=== PATIENT | female | born 1945 | race Caucasian/White ===

== ENCOUNTER 2017-04-06 08:30 | Inpatient (IN) | payer MEDICARE, OTHER ==
[~2017-04-06] VITALS: Ht 165.1 cm; Wt 93.5 kg
[2017-05-22] MEDS ORDERED: LEVO.075 PO (09:06)
[2017-05-22] MEDS ORDERED: FLUO10TA PO (09:06)
[2017-05-22] MEDS ORDERED: SIMV40TA PO (09:33)
[2017-05-22] MEDS ORDERED: METF500T PO (09:33)
[2017-05-22] MEDS ORDERED: CYAN1000P IM (09:33)
[2017-05-22] MEDS ORDERED: MIRT1TAB PO (09:33)
[2017-05-22] MEDS ORDERED: MELO-1 PO (09:33)
[2017-06-08] MEDS ORDERED: INSULIN HUMAN REGULAR 1,000 UNITS/10 ML VIAL SQ PRN (05:45)
[2017-06-08] MEDS ORDERED: METOPROLOL TARTRATE 25 MG TAB PO PRN (05:45)
[2017-06-08] MEDS ORDERED: SODIUM CHLORID 0.9% 500 ML IV PRN (05:45)
[2017-06-08] MEDS ORDERED: POVIDONE IODINE 7.5% SCRUB 118 ML BOTTLE TOPICAL SCH (05:45)
[2017-06-08] MEDS ORDERED: DEXAMETHASONE SOD PHOS 20 MG/5 ML VIAL IV SCH (05:45)
[2017-06-08] MEDS ORDERED: VANCOMYCIN 1000 MG/NS 250 ML (for <70 kg) IV SCH ×2 (05:45)
[2017-06-08] MEDS ORDERED: CHLORHEXIDINE GLUCONATE 4% SOLN 120 ML BTL TOPICAL SCH (05:45)
[2017-06-08] MEDS ORDERED: CHLORHEXIDINE GLUCONATE 2 % 1 PACK (2 CLOTHS) TOPICAL PRN (05:45)
[2017-06-08] MEDS ORDERED: LACTATED RINGER'S 1000 ML IV PRN (05:45)
[2017-06-08] MEDS ORDERED: POVIDONE IODINE 5% (ANTISEPSIS KIT) 4 APPLICATIONS EACH NARE PRN (05:45)
[2017-06-08] MEDS ORDERED: ceFAZolin 2 GM PREMIX 50 ML IV SCH (05:45)
[2017-06-08] MEDS ORDERED: AMBI5TAB PO (05:46)
[2017-06-08] MEDS ORDERED: GENTAMICIN SULFATE 80 MG/2 ML VIAL ONE (06:12)
[2017-06-08] MEDS ORDERED: FAMOTIDINE 20 MG/2 ML VIAL ONE (06:22)
[2017-06-08] MEDS ORDERED: ENOX40P SQ (06:56)
[2017-06-08] MEDS ORDERED: HYDR-3288 PO (06:56)
[2017-06-08] MEDS ORDERED: ASPI81CH37 CHEW (06:57)
[2017-06-08] MEDS ORDERED: TRANEXAMIC ACID IV SCH (07:00)
[2017-06-08] MEDS ORDERED: ONDANSETRON HCL 4 MG/2 ML VIAL IVP PRN (07:00)
[2017-06-08] MEDS ORDERED: TRANEXAMIC PERI-ARTICULAR 3,000 MG/NS 100 ML P-ARTICULR SCH ×2 (07:00)
[2017-06-08] MEDS ORDERED: diphenhydrAMINE HCL 50 MG/ML VIAL IV PRN (07:00)
[2017-06-08] MEDS ORDERED: SODIUM CHLORIDE 0.9% IV SCH (07:00)
[2017-06-08] MEDS ORDERED: ZOLPIDEM TARTRATE 5 MG TAB PO PRN (07:00)
[2017-06-08] MEDS ORDERED: ROPIVACAINE PERI-ARTICULAR INJECTION. P-ARTICULR SCH ×5 (07:00)
[2017-06-08] MEDS ORDERED: SODIUM CHLORIDE 0.9% FLUSH 5 ML FLUSH IVF PRN (07:00)
[2017-06-08] MEDS ORDERED: MORPHINE SULFATE 4 MG/ML INJ IV PUSH PRN (07:00)
[2017-06-08] MEDS ORDERED: ACETAMINOPHEN/HYDROcodone 325 MG/7.5 MG TAB PO PRN (07:00)
[2017-06-08] MEDS ORDERED: Post-op Orders (for Pharmacy) MISC XX ONE (07:00)
[2017-06-08] MEDS: FLUoxetine HCL 10 MG CAP PO SCH (09:00)
[2017-06-08] MEDS ORDERED: BISACODYL 10 MG SUPP RECTAL PRN (09:00)
[2017-06-08] MEDS: SODIUM CHLORIDE 0.9% FLUSH 5 ML FLUSH IVF SCH ×2 (09:00→21:36)
[2017-06-08] MEDS ORDERED: DO NOT ADM ANY ANTICOAGULANT DRUGS PRN (09:15)
[2017-06-08] MEDS: SODIUM CHLOR 0.9% 1000 ML INJ 1,000 ML IV SCH ×2 (09:15→16:53)
[2017-06-08] MEDS ORDERED: *morphine SULFATE 8 MG/ML PERIprocedure ONLY ONE ×3 (09:24→10:55)
--- NOTE | 2017-06-08 09:33 | MP ---
cc: RAMYA URIAS M.D. DATE OF SURGERY: 06/08/2017 PREOPERATIVE DIAGNOSIS Right knee osteoarthritis. POSTOPERATIVE DIAGNOSIS Right knee osteoarthritis. PROCEDURE Right total knee arthroplasty. SURGEON Dr. Ramya Urias. TITLE INSURANCE SALES REPRESENTATIVE Ramya Arguello PA-C. ANESTHESIA General with an adductor canal block. ESTIMATED BLOOD LOSS 100 cc. TOURNIQUET TIME 51 minutes at 300 mmHg COMPLICATIONS None. IMPLANTS USED DePuy Attune size 6 posterior stabilized femoral component, size 5 rotating platform tibial baseplate, size 5 mm polyethylene tibial insert, size 35 patella. JUSTIFICATION The patient is a 71-year-old female with a history of severe end-stage osteoarthritis involving the right knee. She had severe disabling pain with standing, walking ambulation, weightbearing activities and severe pain at rest. It does interfere with her activities of daily living. She has failed greater than three months of nonoperative conservative to include medication therapy, injections, ambulatory assisted aids, home exercise program, activity modification and weight loss attempts. X-rays of the right knee revealed severe end-stage osteoarthritis with [id number] joint space narrowing, subchondral sclerosis, subchondral cysts, osteophyte formation with varus deformity. The patient was counseled as to the risks, benefits and alternatives to a total knee arthroplasty. The risks were discussed which include but are not limited to anesthesia, bleeding, infection, damage to nerves and blood vessels, pain, stiffness, failure of components, blood clots, pulmonary embolism and even . The patient's pain is severe. She favored the benefits over the risks. She did wish to proceed with surgery. PROCEDURE IN DETAIL Written consent was obtained. The patient was identified by name, taken to the operating room and placed supine on the operating table. An adductor canal nerve block was followed by general anesthesia. The patient was administered two grams of IV Ancef and one gram of IV vancomycin. A well-padded tourniquet was placed on the right thigh. The right lower extremity was prepped and draped using isopropyl alcohol, Hibiclens solution and ChloraPrep solution. After the timeout was performed an Esmarch bandage was used to exsanguinate the right lower extremity and tourniquet inflated to 300 mmHg. A longitudinal incision was made over the anterior aspect of the right knee. A medial parapatellar arthrotomy was performed. The patella was everted. A patellar resection guide was used to resect 8 mm of patella. The size 35 mm guide was placed. Three drill holes were placed and the 35 mm trial fit well. Attention was turned to the femur where an intramedullary guide christina was placed and the distal femoral guide was set to remove 10 mm off the distal femur, 5 degrees off the anatomic valgus axis alignment. An oscillating saw was used to perform the distal femoral cut. Attention was turned to the tibia where an extramedullary tibial guide was set to remove 5 mm off the lowest portion of the medial tibial plateau. A tibia guide was pinned in place and tibia cut was performed. A 5 mm spacer block showed full extension. Attention was turned back to the femur where the AP sizing block measured size 6. The anterior reference 3 degree external rotation guide was used to pin a size [address] The anterior, posterior and chamfer cuts were performed. A size 6 PCL box guide was pinned in place and the PCL was box cut with an oscillating saw. The medial and lateral meniscus remnants were removed as well as bone and soft tissue debris from the posterior portion of the knee. A size 5 tibia baseplate was pinned in place and the tibia was drilled and punched. The trial components were evaluated and final components cemented in place. With the current components the leg could achieve full extension to 0 degrees and flexion to 140. No evidence of tibial liftoff. Varus and valgus balance were appropriate. There was some lateral tracking of the patella and a lateral release was performed which allowed for central tracking of the patella. The tourniquet was deflated. There was some bleeding from the lateral aspect of the knee and Bovie cautery was used for hemostasis in this region. Surgiflo was also placed within the knee joint to assist with complete hemostasis. The knee was thoroughly irrigated with sterile saline pulse lavage antibiotic-impregnated solution. The arthrotomy incision was closed with #1 Vicryl suture, subcutaneous layer with 2-0 Vicryl suture and skin was closed with Dermabond. Sterile dressings were applied. The patient tolerated the procedure well with no intraoperative complications noted. Ramya Arguello, physician office clerk assistant certified, was present during the entire procedure to include patient positioning and the procedure itself. The medical necessity of the physician office clerk assistant was indicated in this case due to the complexity of the procedure. He assisted with appropriate manipulation of the leg and also retraction of muscle, tendon, bone and neurovascular structures. He assisted with preparation of bone and also implantation of the prosthetic replacement. MD VIKAS Cates/KATE /8:52 AM /9:11 AM
--- NOTE | 2017-06-08 10:51 | RADRPT ---
EXAM DATE/TIME: 06/08/2017 09:38 [facility] COMPARISON: No previous studies available for comparison. INDICATIONS : Post op right knee MEDICAL HISTORY : None. SURGICAL HISTORY : right knee replaced ENCOUNTER: Initial ACUITY: 1 day PAIN SCORE: 6/10 LOCATION: Right knee FINDINGS: Examination of the knee demonstrates arthroplasty in satisfactory position. The alignment is anatomic . CONCLUSION: Post surgical changes as above. Danial Becerra MD on June 08, 2017 at 10:49 Board Certified Radiologist. This report was verified electronically.
[2017-06-08] MEDS ORDERED: MORPHINE SULFATE 4 MG/ML INJ IV ONE (12:00)
[2017-06-08] MEDS ORDERED: ROCURONIUM INJ 50 MG/5 ML SYRINGE IV PUSH ONE (12:00)
[2017-06-08] MEDS ORDERED: LIDOCAINE HCL 1% PF 5 ML AMPULE OTHER ONE (12:00)
[2017-06-08] MEDS ORDERED: MIDAZOLAM HCL 2 MG/2 ML VIAL IV ONE (12:00)
[2017-06-08] MEDS ORDERED: SODIUM CHLORIDE 0.9% 20 ML VIAL IV ONE (12:00)
[2017-06-08] MEDS ORDERED: ONDANSETRON HCL 4 MG/2 ML VIAL IV PUSH ONE (12:00)
[2017-06-08] MEDS ORDERED: METOPROLOL TARTRATE 5 MG/5 ML VIAL IV PUSH ONE (12:00)
[2017-06-08] MEDS ORDERED: PROPOFOL 200 MG/20 ML AMP IV ONE (12:00)
[2017-06-08] MEDS ORDERED: GLYCOPYRROLATE 1 MG/5 ML SYRINGE IV PUSH ONE (12:00)
--- NOTE | 2017-06-08 13:07 | HHI.DCPOC ---
Discharge Care Plan Diagnosis: (1) Primary localized osteoarthrosis, lower leg Your Health Problems Are: Difficulty with ADL Goals to Promote Your Health * To prevent worsening of your condition and complications * To maintain your health at the optimal level Directions to Meet Your Goals Take your medications as prescribed Follow your dietary instruction Follow activity as directed Keep your appointments as scheduled Take your immunizations and boosters as scheduled If your symptoms worsen call your PCP, if no PCP go to Urgent Care Center or Emergency Room Smoking is Dangerous to Your Health. Avoid second hand smoke Call the 24-hour hour crisis hotline for domestic abuse at Lior Arguello Jun 08, 2017 13:07
--- NOTE | 2017-06-08 13:08 | HHI.FF ---
Face to Face Verification Diagnosis: (1) Primary localized osteoarthrosis, lower leg Physical Therapy Gait training, Safety evaluation, Transfer training, bed to chair Knee: Total knee, Protocol: Right, Full weight bearing Right LE Weight Bearing: WB as tolerated Nursing RN: 3 days/week x 2 weeks Nursing: Leonel teaching, Dressing changes Dressing Changes: Daily dressing change I have seen patient Serena Walter on 06/08/17. My clinical findings support the need for the requested home health care services because: Limited ability to care for self High risk of falls I certify that my clinical findings support that this patient is homebound because: Post-op weakness Unsteady gait/balance Lior Arguello Jun 08, 2017 13:08
[2017-06-08] MEDS ORDERED: WALKER WHEELS/F1 MIS (13:10)
[2017-06-08] MEDS ORDERED: CPMMACHINE (13:10)
[2017-06-08] MEDS ORDERED: COMMODE 3-IN-11 MIS (13:10)
[2017-06-08] MEDS: ACETAMINOPHEN/HYDROcodone 325 MG/7.5 MG TAB PO PRN ×3 (13:45→21:38)
[2017-06-08 15:50] VITALS: BP 134/55; PULSE 82; RESP 18; TEMP 97.9; O2SAT 99
[2017-06-08 20:00] VITALS: BP 118/56; PULSE 86; RESP 20; TEMP 97.3; O2SAT 96
[2017-06-08] MEDS: PRAVASTATIN SOD 40 MG TAB PO SCH (21:36)
[2017-06-08] MEDS: metFORMIN HCL 500 MG TAB PO SCH (21:36)
[2017-06-08] MEDS: FAMOTIDINE 20 MG TAB PO SCH (21:36)
--- NOTE | 2017-06-08 23:43 | MB ---
cc: WYATT CALDERON JEFFREY DATE OF CONSULTATION: 06/08/[address] Lior Landaverde REASON FOR CONSULTATION: Assistance with postop medical management. HISTORY OF PRESENT ILLNESS This is a pleasant 71-year-old female with prior history of diabetes, hypertension, hyperlipidemia and osteoarthritis. The patient has been suffering from right knee pain for quite some time. She was diagnosed with severe osteoarthritis, and was treated conservatively with analgesics and NSAIDs. She was treated with conservative medical management after which Dr. Landaverde recommended knee replacement arthroplsty. The patient received preop medical care by her primary care physician. She was brought to the hospital electively and today she underwent right total knee replacement arthroplasty under general anesthesia with adductor canal block. She tolerated the procedure well. It was estimated 100 cc blood loss to the operation. Postoperatively she is currently resting in bed. Pain is in control. She denies nausea or vomiting. Denies chest pain, shortness of breath, cough or sputum production. PAST MEDICAL HISTORY This patient is significant for: 1. Diabetes type 2. 2. Hypertension. 3. Hyperlipidemia. 4. History of hypothyroidism. 5. History of breast cancer. 6. History of depression. 7. Obesity. 8. Osteoarthritis. PAST SURGICAL HISTORY Significant for: 1. Bilateral radical mastectomy in 2002. 2. Reconstructive breast surgery in 2004. 3. Few spurs bilateral feet. 4. Hysterectomy. SOCIAL HISTORY She used to smoke in the distant past, stopped smoking about 35 years ago. She denies drinking or drug abuse. She is , lives with her . Her is 90 years old, suffers from dementia and she is the caregiver. FAMILY HISTORY: Both her parents are . Mom at the age of 89 from complications of pneumonia. Dad also at the age of 89. He had brain aneurysm. HOME MEDICATIONS: 1. Oxygen 10 milligrams daily. 2. Levothyroxine 75 micrograms daily. 3. Meloxicam 15 mg daily. 4. Simvastatin 40 mg daily. 5. Vitamin B12 injection every 30 days. 6. Metformin 500 milligrams p.o. b.i.d. 7. Ambien 5 milligrams at bed time for insomnia. REVIEW OF SYSTEMS The patient denies headache, dizziness, loss of consciousness, no dysphagia, odynophagia. Denies nausea, vomiting. Denies chest pain, shortness breath, orthopnea, paroxysmal nocturnal dyspnea. Denies cough with sputum production. She usually moves her bowels every 2-3 days. Denies melena, bright red blood per rectum. No history of recent change in bowel pattern. She had screening colonoscopy, the last one was done about a year ago. She denies dysuria or hematuria. She is hoping to go home with home health care when stable. The remainder of the review of systems is negative for 12 systems except for what is mentioned above. PHYSICAL EXAMINATION: An obese female lying in bed, not in any acute distress. She is awake and alert, she is oriented x3. VITAL SIGNS: Blood pressure 123/80, pulse 84, respiratory rate 12, temperature 97.8, oxygen 97% on two liters nasal cannula. HEENT: Normocephalic, atraumatic, extraocular movements intact, round and reactive. No icterus, no significant pallor. No throat congestion, no oral ulcers or thrush. NECK: Supple. No JVD. No bruits. CARDIOVASCULAR: S1-S2 audible, regular rhythm, no murmurs. LUNGS: Clear to auscultation. No crackles or rhonchi appreciated. ABDOMEN: Soft, protuberant, bulky, nontender. Positive bowel sounds. No hepatosplenomegaly. EXTREMITIES: Right knee has dressing intact. NAYA drain is in place. Both feet are warm to touch. Homans' sign is negative. NEUROLOGIC: She is awake, alert. Oriented x3. No facial asymmetry. She is moving bilateral left lower extremity freely. LABORATORY DATA On 05/22/2017: White count 6.0, hemoglobin 12.1, hematocrit 36.1, platelet count 268, with an MCV of 91.3. Sodium 139, potassium 3.6, chloride 102, carbon dioxide 30.2, BUN 11, creatinine 0.60, glucose 121, calcium 8.4, LFTs essentially unremarkable. Total protein slightly low at 6.3, albumin 3.4. IMAGING STUDIES: Chest x-ray 05/22/2017, mild prominence of pulmonary artery suggesting possible pulmonary artery hypertension, otherwise lungs are clear. No infiltrate or effusion. EK05/22/2017, sinus rhythm with distant artifact, possible left atrial enlargement. ASSESSMENT: 1. Osteoarthritis right knee, status post right total knee replacement, postop day #0. 2. Diabetes type 2. 3. Hypertension. 4. Hyperlipidemia. 5. Obesity. 6. Depression. 7. Prior history of breast cancer. PLAN Postop care as per orthopedic. The patient is receiving antibiotics prophylaxis in the form of IV Ancef. The analgesics for pain control, SCDs, wound care. DVT prophylaxis, subcu Lovenox has been ordered. CPM twice daily. Will put her on diabetic diet. Sliding scale coverage with metformin. Continue statin, continue antidepressant, put her on Pepcid for GI protection. Monitor CBC, electrolytes, monitor blood pressure. Consult Outdoor Studies Director for discharge planning. Thank you, Dr. Landaverde, for this consultation. I will follow the patient with you. MD KEI Zimmerman/CUCO /6:21 PM /11:15 PM
[2017-06-09] VITALS (7 sets, daily range): BP systolic 96–113; BP diastolic 48–54; PULSE 75–83; RESP 13–20; TEMP 97.3–98.4; O2SAT 93–97
[2017-06-09] MEDS: SODIUM CHLOR 0.9% 1000 ML INJ 1,000 ML IV SCH ×3 (02:59→23:56)
[2017-06-09] MEDS: LEVOTHYROXINE SODIUM 75 MCG TAB PO SCH (06:37)
[2017-06-09] MEDS: ACETAMINOPHEN/HYDROcodone 325 MG/7.5 MG TAB PO PRN ×5 (06:38→22:28)
--- NOTE | 2017-06-09 08:14 | PD.ORT.PN ---
Subjective Post Op Day #: 1 Subjective Remarks pain controlled. Objective Vitals Vital Signs Date Time Temp Pulse Resp B/P (MAP) Pulse Ox O2 Delivery O2 Flow Rate FiO2 06/09/17 07:32 97.3 75 18 106/51 (69) 93 06/09/17 04:00 97.3 76 20 113/52 (72) 94 06/09/17 03:55 93 06/09/17 00:00 97.6 83 20 96/48 (64) 94 06/08/17 20:00 97.3 86 20 118/56 (76) 96 06/08/17 15:50 97.9 82 18 134/55 (81) 99 06/08/17 15:30 97.8 84 12 123/58 (79) 97 Nasal Cannula 2 06/08/17 15:00 93 12 108/58 (75) 97 Nasal Cannula 2 06/08/17 14:00 90 12 139/63 (88) 97 Nasal Cannula 2 06/08/17 13:00 91 12 146/68 (94) 98 Nasal Cannula 2 06/08/17 12:00 98.1 97 12 151/67 (95) 98 Nasal Cannula 2 06/08/17 11:00 92 12 153/72 (99) 96 Nasal Cannula 2 06/08/17 10:15 92 12 153/81 (105) 97 Nasal Cannula 2 06/08/17 10:00 101 12 155/85 (108) 97 Nasal Cannula 2 06/08/17 09:45 101 12 146/83 (104) 97 Nasal Cannula 2 06/08/17 09:30 109 12 188/88 (121) 97 Nasal Cannula 2 06/08/17 09:15 97.8 111 12 190/86 (120) 97 Nasal Cannula 2 I/O 06/08/17 06/08/17 06/08/17 06/09/17 06/09/17 06/09/17 07:00 15:00 23:00 07:00 15:00 23:00 Intake Total 50 ml 1100 ml 561 ml 1345 ml Output Total 300 ml 350 ml 625 ml Balance 50 ml 800 ml 211 ml 720 ml Intake IV Total 50 ml 1100 ml 561 ml 1345 ml Output Urine Total 200 ml 350 ml 625 ml Estimated Blood Loss 100 ml Objective Remarks in bed, nad dressing c/d/i neg homans nvi Assessment & Plan Ortho Post Op Day #: 1 Problem List: Assessment and Plan s/p R TKA wbat daily dressing changes aleksandar d/c planning home with [facility] and pt PT rx in chart f/up dr. cota 2 weeks Lior Arguello Jun 09, 2017 08:14
[2017-06-09] MEDS: ENOXAPARIN SODIUM 40 MG/0.4 ML SYRINGE SQ SCH (08:28)
[2017-06-09] MEDS: FAMOTIDINE 20 MG TAB PO SCH ×2 (08:28→22:27)
[2017-06-09] MEDS: FLUoxetine HCL 10 MG CAP PO SCH (08:28)
[2017-06-09 08:29] LABS: HEMATOCRIT 27.1 % (35.0-46.0); MEAN CELL VOLUME 92.8 FL (80.0-100.0); MEAN CORPUSCULAR HEMOGLOBIN 31.2 PG (27.0-34.0); MEAN CORPUSCULAR HGB CONC 33.7 % (32.0-36.0); PLATELET COUNT 210 TH/MM3 (150-450); RED BLOOD COUNT 2.93 MIL/MM3 (4.00-5.30); RED CELL DISTRIBUTION WIDTH 14.4 % (11.6-17.2); REVIEW FLAG FINAL; WHITE BLOOD COUNT 9.5 TH/MM3 (4.0-11.0)
[2017-06-09] MEDS: SODIUM CHLORIDE 0.9% FLUSH 5 ML FLUSH IVF SCH ×2 (08:29→22:28)
[2017-06-09 08:33] LABS: BICARBONATE 27.1 MEQ/L (21.0-32.0); POTASSIUM 3.9 MEQ/L (3.5-5.1)
--- NOTE | 2017-06-09 09:59 | HHI.PR ---
Subjective Subjective Remarks No acute events overnight Right knee pain stable No fever No chest pain No shortness of breath Tolerating diet well Review of Systems Constitutional Constitutional Remarks 12 point review of systems completed, negative except as noted above Vitals/Results Intake & Output 06/09/17 06/09/17 06/10/17 15:00 23:00 07:00 Intake Total 219 ml Balance 219 ml Intake IV Total 219 ml Vital Signs Vital Signs Date Time Temp Pulse Resp B/P (MAP) Pulse Ox O2 Delivery O2 Flow Rate FiO2 06/09/17 07:32 97.3 75 18 106/51 (69) 93 06/09/17 04:00 97.3 76 20 113/52 (72) 94 06/09/17 03:55 93 06/09/17 00:00 97.6 83 20 96/48 (64) 94 06/08/17 20:00 97.3 86 20 118/56 (76) 96 06/08/17 15:50 97.9 82 18 134/55 (81) 99 06/08/17 15:30 97.8 84 12 123/58 (79) 97 Nasal Cannula 2 06/08/17 15:00 93 12 108/58 (75) 97 Nasal Cannula 2 06/08/17 14:00 90 12 139/63 (88) 97 Nasal Cannula 2 06/08/17 13:00 91 12 146/68 (94) 98 Nasal Cannula 2 06/08/17 12:00 98.1 97 12 151/67 (95) 98 Nasal Cannula 2 06/08/17 11:00 92 12 153/72 (99) 96 Nasal Cannula 2 06/08/17 10:15 92 12 153/81 (105) 97 Nasal Cannula 2 06/08/17 10:00 101 12 155/85 (108) 97 Nasal Cannula 2 CBC/BMP: 06/09/17 0716 06/09/17 0716 Lab Results Laboratory Tests Test 06/09/17 07:16 White Blood Count 9.5 TH/MM3 Red Blood Count 2.93 MIL/MM3 Hemoglobin 9.1 GM/DL Hematocrit 27.1 % Mean Corpuscular Volume 92.8 FL Mean Corpuscular Hemoglobin 31.2 PG Mean Corpuscular Hemoglobin Concent 33.7 % Red Cell Distribution Width 14.4 % Platelet Count 210 TH/MM3 Mean Platelet Volume 9.0 FL Blood Urea Nitrogen 12 MG/DL Creatinine 0.67 MG/DL Random Glucose 119 MG/DL Calcium Level 7.8 MG/DL Sodium Level 138 MEQ/L Potassium Level 3.9 MEQ/L Chloride Level 104 MEQ/L Carbon Dioxide Level 27.1 MEQ/L Anion Gap 7 MEQ/L Estimat Glomerular Filtration Rate 87 ML/MIN Physical Exam General General Appearance: Well Developed, Well Nourished, No Acute Distress, Comfortable, Obese Eyes Eye Exam: Pupils Equal, Pupils Reactive Ears & Nose Ears & Nose Exam: Nasal Mucosa [place] Throat Throat Exam: Oral Mucosa [place] & Moist Neck Neck Exam: Neck Supple, Trachea Midline Pulmonary Resp Exam: Clear Bilaterally, No Distress Cardiology CV Exam: Regular Gastrointestinal/Abdomen GI Exam: Soft, Non-Tender, Bowel Sounds Present, Non-Distended Musculoskeletal MS Exam: Joints Intact MS Remarks Right knee dressing dry and intact Integumentary Skin Exam: Warm, Dry Extremeties Extremities Exam: No Edema, Pedal Pulses Palpable Neurologic Neuro Exam: Alert, Awake, Oriented, Speech Clear, Auto Mechanic Supervisor Equal Psychiatric Psych Exam: Appropriate Responses VTE Prophylaxis VTE Prophylaxis Device: TEDs VTE Prophylaxis Meds: Lovenox Assessment/Plan Assessment/Plan ASSESSMENT: 1. Osteoarthritis right knee, status post right total knee replacement, postop day #1 2. Diabetes type 2. 3. Hypertension. 4. Hyperlipidemia. 5. Obesity. 6. Depression. 7. Prior history of breast cancer. PLAN Continue with Postop care as per orthopedic Continue with antibiotics prophylaxis in the form of IV Ancef Pain management Wound care Physical therapy CPM twice daily Continue with Accu-Cheks before meals and at bedtime and insulin therapy as needed Continue with home medications History hypertension, blood pressure 100s, stable Denies any dizziness Patient not taking any medications at home Labs reviewed, H&H stable, 9.10/03.1 Continue Lovenox for DVT prophylaxis Pepcid for GI protection Repeat CBC in the morning Case management for home health care, patient wants to go home Discussed with attending Discussed with patient This patient was seen by myself and Dr. Titus, this note is written on his behalf [place] Grimes Jun 09, 2017 09:59
[2017-06-09] MEDS ORDERED: DEXTROSE 50% IN WATER 50 ML VIAL(D50) IV PUSH PRN (10:00)
[2017-06-09] MEDS ORDERED: GLUCAGON 1 MG/ML VIAL OTHER PRN (10:00)
[2017-06-09] MEDS: INSULIN ASPART SUPPLEMENTAL SCALE SQ SCH ×3 (12:00→22:28)
[2017-06-09] MEDS: metFORMIN HCL 500 MG TAB PO SCH (22:27)
[2017-06-09] MEDS: PRAVASTATIN SOD 40 MG TAB PO SCH (22:27)
[2017-06-09] MEDS: DOCUSATE SODIUM 100 MG CAP PO SCH (22:27)
[2017-06-09] MEDS: MULTIVITAMINS/MINERALS THERAPEUTIC TAB PO SCH (22:27)
[2017-06-10 00:10] VITALS: BP 113/49; PULSE 75; RESP 15; TEMP 96.3; O2SAT 93
[2017-06-10] MEDS: ACETAMINOPHEN/HYDROcodone 325 MG/7.5 MG TAB PO PRN ×6 (02:41→23:58)
[2017-06-10] MEDS: LEVOTHYROXINE SODIUM 75 MCG TAB PO SCH (06:51)
[2017-06-10 08:00] VITALS: BP 104/50; PULSE 78; RESP 17; TEMP 97.1; O2SAT 92
[2017-06-10] MEDS: INSULIN ASPART SUPPLEMENTAL SCALE SQ SCH ×4 (08:00→21:00)
[2017-06-10 08:12] LABS: HEMATOCRIT 24.7 % (35.0-46.0); MEAN CELL VOLUME 91.5 FL (80.0-100.0); MEAN CORPUSCULAR HEMOGLOBIN 31.1 PG (27.0-34.0); PLATELET COUNT 187 TH/MM3 (150-450); RED CELL DISTRIBUTION WIDTH 14.2 % (11.6-17.2); REVIEW FLAG FINAL; WHITE BLOOD COUNT 7.2 TH/MM3 (4.0-11.0)
--- NOTE | 2017-06-10 08:18 | PD.ORT.PN ---
Subjective Post Op Day #: 2 Subjective Remarks pain controlled. did not do much with PT yesterday. Objective Vitals Vital Signs Date Time Temp Pulse Resp B/P (MAP) Pulse Ox O2 Delivery O2 Flow Rate FiO2 06/10/17 00:10 96.3 75 15 113/49 (70) 93 06/09/17 21:05 97 06/09/17 20:24 98.4 79 13 108/50 (69) 06/09/17 11:38 97.8 77 18 103/54 (70) 94 I/O 06/09/17 06/09/17 06/09/17 06/10/17 06/10/17 06/10/17 07:00 15:00 23:00 07:00 15:00 23:00 Intake Total 1345 ml 819 ml 720 ml 240 ml Output Total 625 ml 150 ml Balance 720 ml 669 ml 720 ml 240 ml Intake Oral 600 ml 720 ml 240 ml IV Total 1345 ml 219 ml Output Urine Total 625 ml 150 ml # Voids 3 2 # Bowel Movements 0 0 0 Result Diagram: 06/10/17 0634 06/09/17 0716 Objective Remarks in bed, nad incision no erythema, no drainage neg homans nvi Assessment & Plan Ortho Post Op Day #: 2 Problem List: Assessment and Plan s/p R TKA wbat daily dressing changes lovenox d/c planning home with [facility] and pt - likely Thurs. PT OOB and IS rx in chart f/up dr. cota 2 weeks Lior Arguello Jun 10, 2017 08:18
[2017-06-10] MEDS: MULTIVITAMINS/MINERALS THERAPEUTIC TAB PO SCH ×2 (08:51→20:17)
[2017-06-10] MEDS: SODIUM CHLORIDE 0.9% FLUSH 5 ML FLUSH IVF SCH ×2 (08:51→20:17)
[2017-06-10] MEDS: FLUoxetine HCL 10 MG CAP PO SCH (08:51)
[2017-06-10] MEDS: DOCUSATE SODIUM 100 MG CAP PO SCH ×2 (08:51→20:17)
[2017-06-10] MEDS: FAMOTIDINE 20 MG TAB PO SCH ×2 (08:51→20:18)
[2017-06-10] MEDS: ENOXAPARIN SODIUM 40 MG/0.4 ML SYRINGE SQ SCH (08:52)
[2017-06-10] MEDS: SODIUM CHLOR 0.9% 1000 ML INJ 1,000 ML IV SCH ×2 (08:53→18:53)
[2017-06-10 08:55] LABS: POTASSIUM 3.5 MEQ/L (3.5-5.1)
[2017-06-10] MEDS ORDERED: MAGNESIUM HYDROXIDE SUSP 30 ML CUP PO PRN (09:45)
--- NOTE | 2017-06-10 09:47 | HHI.PR ---
Subjective Subjective Remarks no fever was hoping to go home today but not moving as much no bm yet no fever Right knee pain stable No chest pain No shortness of breath appetite fair Review of Systems Constitutional Constitutional Remarks 12 point review of systems completed, negative except as noted above Vitals/Results Vital Signs Vital Signs Date Time Temp Pulse Resp B/P (MAP) Pulse Ox O2 Delivery O2 Flow Rate FiO2 06/10/17 08:00 97.1 78 17 104/50 (68) 92 06/10/17 00:10 96.3 75 15 113/49 (70) 93 06/09/17 21:05 97 06/09/17 20:24 98.4 79 13 108/50 (69) 06/09/17 11:38 97.8 77 18 103/54 (70) 94 CBC/BMP: 06/10/17 0634 06/10/17 0634 Lab Results Laboratory Tests Test 06/10/17 06:34 White Blood Count 7.2 TH/MM3 Red Blood Count 2.70 MIL/MM3 Hemoglobin 8.4 GM/DL Hematocrit 24.7 % Mean Corpuscular Volume 91.5 FL Mean Corpuscular Hemoglobin 31.1 PG Mean Corpuscular Hemoglobin Concent 34.0 % Red Cell Distribution Width 14.2 % Platelet Count 187 TH/MM3 Mean Platelet Volume 9.3 FL Blood Urea Nitrogen 11 MG/DL Creatinine 0.58 MG/DL Random Glucose 81 MG/DL Calcium Level 8.2 MG/DL Sodium Level 139 MEQ/L Potassium Level 3.5 MEQ/L Chloride Level 104 MEQ/L Carbon Dioxide Level 30.0 MEQ/L Anion Gap 5 MEQ/L Estimat Glomerular Filtration Rate 102 ML/MIN Physical Exam General General Appearance: Well Developed, Well Nourished, No Acute Distress, Comfortable, Obese Eyes Eye Exam: Pupils Equal, Pupils Reactive Ears & Nose Ears & Nose Exam: Nasal Mucosa [place] Throat Throat Exam: Oral Mucosa [place] & Moist Neck Neck Exam: Neck Supple, Trachea Midline Pulmonary Resp Exam: Clear Bilaterally, No Distress Cardiology CV Exam: Regular Gastrointestinal/Abdomen GI Exam: Soft, Non-Tender, Bowel Sounds Present, Non-Distended Musculoskeletal MS Exam: Joints Intact MS Remarks Right knee dressing dry and intact Integumentary Skin Exam: Warm, Dry Extremeties Extremities Exam: No Edema, Pedal Pulses Palpable Neurologic Neuro Exam: Alert, Awake, Oriented, Speech Clear, Job Printer Apprentice Equal Psychiatric Psych Exam: Appropriate Responses VTE Prophylaxis VTE Prophylaxis Device: TEDs VTE Prophylaxis Meds: Lovenox Assessment/Plan Assessment/Plan ASSESSMENT: 1. Osteoarthritis right knee, status post right total knee replacement, postop day #1 2. Diabetes type 2. 3. Hypertension. 4. Hyperlipidemia. 5. Obesity. 6. Depression. 7. Prior history of breast cancer. PLAN Continue with Postop care as per orthopedic Continue with antibiotics prophylaxis in the form of IV Ancef Pain management Wound care Physical therapy CPM twice daily Continue with Accu-Cheks before meals and at bedtime and insulin therapy as needed Continue with home medications Add MOM to bowel regimen History hypertension, blood pressure 100s, stable Denies any dizziness Patient not taking any medications at home HH stable, hgb 8.4 Continue Lovenox for DVT prophylaxis Pepcid for GI protection Repeat CBC in the morning Case management for home health care, patient wants to go home likely to be dc tomorrow Discussed with attending Discussed with patient This patient was seen by myself and Dr. Titus, this note is written on his behalf [place] Grimes Jun 10, 2017 09:47
[2017-06-10 12:00] VITALS: BP 104/48; PULSE 85; RESP 17; TEMP 95.7; O2SAT 98
[2017-06-10 16:00] VITALS: BP 129/66; PULSE 80; RESP 17; TEMP 96.6; O2SAT 95
[2017-06-10 19:15] VITALS: BP 120/53; PULSE 89; RESP 16; TEMP 97.5; O2SAT 94
[2017-06-10] MEDS: PRAVASTATIN SOD 40 MG TAB PO SCH (20:18)
[2017-06-10] MEDS: metFORMIN HCL 500 MG TAB PO SCH (22:05)
[2017-06-11 00:20] VITALS: BP 119/56; PULSE 78; RESP 16; TEMP 97.2; O2SAT 95
[2017-06-11] MEDS: SODIUM CHLOR 0.9% 1000 ML INJ 1,000 ML IV SCH (04:53)
[2017-06-11] MEDS: LEVOTHYROXINE SODIUM 75 MCG TAB PO SCH (05:14)
[2017-06-11] MEDS: ACETAMINOPHEN/HYDROcodone 325 MG/7.5 MG TAB PO PRN ×3 (05:15→14:28)
[2017-06-11 07:25] LABS: HEMATOCRIT 25.5 % (35.0-46.0); MEAN CELL VOLUME 90.8 FL (80.0-100.0); MEAN CORPUSCULAR HEMOGLOBIN 30.9 PG (27.0-34.0); MEAN CORPUSCULAR HGB CONC 34.1 % (32.0-36.0); PLATELET COUNT 207 TH/MM3 (150-450); RED BLOOD COUNT 2.81 MIL/MM3 (4.00-5.30); RED CELL DISTRIBUTION WIDTH 14.3 % (11.6-17.2); REVIEW FLAG FINAL; WHITE BLOOD COUNT 7.1 TH/MM3 (4.0-11.0)
[2017-06-11 07:41] VITALS: BP 123/55; PULSE 93; RESP 18; TEMP 98.8; O2SAT 93
[2017-06-11 07:43] LABS: BICARBONATE 31.3 MEQ/L (21.0-32.0); POTASSIUM 3.5 MEQ/L (3.5-5.1)
[2017-06-11] MEDS: INSULIN ASPART SUPPLEMENTAL SCALE SQ SCH (08:00)
--- NOTE | 2017-06-11 08:11 | PD.ORT.PN ---
Subjective Post Op Day #: 3 Subjective Remarks pain controlled. feeling better. Objective Vitals Vital Signs Date Time Temp Pulse Resp B/P (MAP) Pulse Ox O2 Delivery O2 Flow Rate FiO2 06/11/17 07:41 98.8 93 18 123/55 (77) 93 06/11/17 00:20 97.2 78 16 119/56 (77) 95 06/10/17 19:15 97.5 89 16 120/53 (75) 94 06/10/17 16:00 96.6 80 17 129/66 (87) 95 06/10/17 12:00 95.7 85 17 104/48 (66) 98 I/O 06/10/17 06/10/17 06/10/17 06/11/17 06/11/17 06/11/17 07:00 15:00 23:00 07:00 15:00 23:00 Intake Total 240 ml Balance 240 ml Intake Oral 240 ml # Voids 2 # Bowel Movements 0 Result Diagram: 06/11/17 0637 06/11/17 0637 Objective Remarks in bed, nad dressing c/d/i neg homans nvi Assessment & Plan Ortho Post Op Day #: 3 Problem List: Assessment and Plan s/p R TKA wbat daily dressing changes lovenox d/c planning home with [facility] and pt - cleared today PT OOB and IS rx in chart f/up dr. cota 2 weeks Lior Arguello Jun 11, 2017 08:10
[2017-06-11] MEDS: FAMOTIDINE 20 MG TAB PO SCH (09:08)
[2017-06-11] MEDS: DOCUSATE SODIUM 100 MG CAP PO SCH (09:08)
[2017-06-11] MEDS: FLUoxetine HCL 10 MG CAP PO SCH (09:08)
[2017-06-11] MEDS: MULTIVITAMINS/MINERALS THERAPEUTIC TAB PO SCH (09:08)
[2017-06-11] MEDS: ENOXAPARIN SODIUM 40 MG/0.4 ML SYRINGE SQ SCH (09:08)
[2017-06-11] MEDS: SODIUM CHLORIDE 0.9% FLUSH 5 ML FLUSH IVF SCH (09:13)
[2017-06-11] MEDS ORDERED: POTASSIUM CHLORIDE 25 MEQ EFFERVESCENT TAB PO ONE (10:00)
--- NOTE | 2017-06-11 11:31 | HHI.PR ---
Subjective Subjective Remarks Ambulated with physical therapy, did better today Minimal pain Had small BM No chest pain No shortness of breath No fever Going home today with home health care Review of Systems Constitutional Constitutional Remarks 12 point review of systems completed, negative except as noted above Vitals/Results Vital Signs Vital Signs Date Time Temp Pulse Resp B/P (MAP) Pulse Ox O2 Delivery O2 Flow Rate FiO2 06/11/17 07:41 98.8 93 18 123/55 (77) 93 06/11/17 00:20 97.2 78 16 119/56 (77) 95 06/10/17 19:15 97.5 89 16 120/53 (75) 94 06/10/17 16:00 96.6 80 17 129/66 (87) 95 06/10/17 12:00 95.7 85 17 104/48 (66) 98 CBC/BMP: 06/11/17 0637 06/11/17 0637 Lab Results Laboratory Tests Test 06/11/17 06:37 White Blood Count 7.1 TH/MM3 Red Blood Count 2.81 MIL/MM3 Hemoglobin 8.7 GM/DL Hematocrit 25.5 % Mean Corpuscular Volume 90.8 FL Mean Corpuscular Hemoglobin 30.9 PG Mean Corpuscular Hemoglobin Concent 34.1 % Red Cell Distribution Width 14.3 % Platelet Count 207 TH/MM3 Mean Platelet Volume 8.9 FL Blood Urea Nitrogen 11 MG/DL Creatinine 0.50 MG/DL Random Glucose 100 MG/DL Calcium Level 8.6 MG/DL Sodium Level 139 MEQ/L Potassium Level 3.5 MEQ/L Chloride Level 102 MEQ/L Carbon Dioxide Level 31.3 MEQ/L Anion Gap 6 MEQ/L Estimat Glomerular Filtration Rate 122 ML/MIN Physical Exam General General Appearance: Well Developed, Well Nourished, No Acute Distress, Comfortable, Obese Eyes Eye Exam: Pupils Equal, Pupils Reactive Ears & Nose Ears & Nose Exam: Nasal Mucosa [place] Throat Throat Exam: Oral Mucosa [place] & Moist Neck Neck Exam: Neck Supple, Trachea Midline Pulmonary Resp Exam: Clear Bilaterally, No Distress Cardiology CV Exam: Regular Gastrointestinal/Abdomen GI Exam: Soft, Non-Tender, Bowel Sounds Present, Non-Distended Musculoskeletal MS Exam: Joints Intact MS Remarks Right knee dressing dry and intact Integumentary Skin Exam: Warm, Dry Extremeties Extremities Exam: No Edema, Pedal Pulses Palpable Neurologic Neuro Exam: Alert, Awake, Oriented, Speech Clear, [place]/Woman Equal Psychiatric Psych Exam: Appropriate Responses VTE Prophylaxis VTE Prophylaxis Device: TEDs VTE Prophylaxis Meds: Lovenox Assessment/Plan Assessment/Plan ASSESSMENT: 1. Osteoarthritis right knee, status post right total knee replacement, postop day #1 2. Diabetes type 2. 3. Hypertension. 4. Hyperlipidemia. 5. Obesity. 6. Depression. 7. Prior history of breast cancer. PLAN Continue with Postop care as per orthopedic Continue with antibiotics prophylaxis in the form of IV Ancef Pain management Wound care Physical therapy CPM twice daily Continue with Accu-Cheks before meals and at bedtime and insulin therapy as needed Continue with home medications Continue with MOM to bowel regimen History hypertension, blood pressure 100s, stable Denies any dizziness Patient not taking any medications at home H&H stable, hemoglobin 8.7-postop anemia Continue Lovenox for DVT prophylaxis Pepcid for GI protection Patient stable, afebrile Stable for discharge home with home health care Discussed with attending Discussed with patient This patient was seen by myself and Dr. Titus, this note is written on his behalf [place] Grimes Jun 11, 2017 11:14
[2017-06-11 11:32] VITALS: BP 117/52; PULSE 90; RESP 18; TEMP 96.8; O2SAT 93
--- NOTE | 2017-06-12 07:56 | MD ---
cc: RAMYA LANDAVERDE ADMISSION DATE: 06/08/2017 DISCHARGE DATE: 06/11/2017 ADMISSION DIAGNOSIS Severe degenerative osteoarthritis. DISCHARGE DIAGNOSIS Severe degenerative osteoarthritis. HISTORY OF PRESENT ILLNESS Ms. Walter is a 71-year-old female who presented to the orthopedic clinic of [place] for evaluation by Dr. Ramya Landaverde regarding severe and progressive right knee and lower extremity pain. She states the pain has been progressive for greater than 1 year duration, it is currently inhibiting her activities of daily living and her ability to ambulate safely. She notes the pain is a constant severe aching sensation. She has no alleviating factors at this point in time, although in the past she has tried medications, bracing, therapy, home exercise program and even corticosteroid injections without relief of symptoms. She does have x-ray evidence of severe degenerative osteoarthritis of the right knee. While in the office the patient was counseled on her diagnosis and treatment options. Risks, benefits, indications were all discussed. The patient did elect to proceed with surgical intervention to include a right total knee arthroplasty. DATE OF SURGERY: 06/08/2017, right total knee arthroplasty. POSTOP After surgery the patient was admitted to [facility] where she received appropriate medical management, pain control, DVT prophylaxis as well as physical therapy. DISCHARGE Once being discharged from the hospital the patient is cleared to go home. She is in stable condition. She may weight-bear as tolerated. She is to receive daily dressing changes and has been instructed on appropriate wound care management. She has been provided prescriptions for pain control as well as DVT prophylaxis medication. She has also been provided a follow-up appointment approximately 2 weeks from date of surgery. The patient asked appropriate questions which have been answered. The patient is cleared for discharge. Dictated by: COLTON Miranda MD VIKAS Cates/ARCHIE /8:12 AM /7:53 AM
== END 2017-06-11 15:05 | disposition home health service (06) | DRG 470 ==
LOC: HSDI 06-08 05:10 → N06A 06-08 15:45
PROVIDERS: ADMIT Orthopaedic Surgery Sports Medicine; ATTEND Orthopaedic Surgery Sports Medicine
PROC: 3E0T3BZ Introduction of Anesthetic Agent into Peripheral Nerves and Plexi, Percutaneous Approach (ICD-10-PCS; 2017-06-08)
PROC: 0SRC0J9 Replacement of Right Knee Joint with Synthetic Substitute, Cemented, Open Approach (ICD-10-PCS; principal; 2017-06-08 06:42)
DX: M17.11 Unilateral primary osteoarthritis, right knee (principal); E11.9 Type 2 diabetes mellitus without complications; Z79.84 Long term (current) use of oral hypoglycemic drugs; D62 Acute posthemorrhagic anemia; I10 Essential (primary) hypertension; E03.9 Hypothyroidism, unspecified; Z87.891 Personal history of nicotine dependence; E78.5 Hyperlipidemia, unspecified; Z85.3 Personal history of malignant neoplasm of breast; E66.9 Obesity, unspecified; Z68.34 Body mass index [BMI] 34.0-34.9, adult
CPT/HCPCS: 73560; 80048; 82948; 85027; 86850; 86900; 86901; 94150; C1776; J0690; J0735; J1100; J1200; J1580; J1650; J1885; J2250; J2270; J2405; J2795; J3010; J3370; J7030; J7050; J7120; L1830

== ENCOUNTER → 2017-05-22 | Outpatient (CLI) | payer MEDICARE, OTHER ==
[~2017-05-22] MED LIST: AMBI5TAB PO; ASPI81CH37 CHEW; COMMODE 3-IN-11 MIS; CPMMACHINE; CYAN1000P IM; ENOX40P SQ; FLUO10TA PO; HYDR-3288 PO; LEVO.075 PO; MELO-1 PO; METF500T PO; MIRT1TAB PO; OMEP10CA PO; OMEP10CA37 PO; SARA10TA PO; SIMV20TA PO; SIMV40TA PO; SYNT75TA PO; WALKER WHEELS/F1 MIS; ZOCO40TA PO
--- NOTE | 2017-05-22 09:58 | RADRPT ---
EXAM DATE/TIME: 05/22/2017 09:35 [facility] COMPARISON: No previous studies available for comparison. INDICATIONS : Evaluate for pneumonia, pneumothorax or communicable disease. Pre-op right knee. MEDICAL HISTORY : None. SURGICAL HISTORY : None. ENCOUNTER: Initial ACUITY: 1 day PAIN SCORE: 0/10 LOCATION: Bilateral chest FINDINGS: The heart is at the upper limits of normal in size. There are surgical clips evident in the breast an d chest wall. The mediastinal contours demonstrate mild prominence of the pulmonary arteries. The nitesh gs are clear. There is a scoliosis and degenerative changes within the spine. CONCLUSION: 1. Mild prominence of the pulmonary artery suggesting possible pulmonary artery hypertension. 2. The lungs are clear. Neal Nolasco MD on May 22, 2017 at 9:55 Board Certified Radiologist. This report was verified electronically.
[2017-05-22 10:15] LABS: BACTERIA, URINE FEW /hpf; BLOOD, URINE NEG (NEG); COMMENT (UR) CULT NOT INDICATED; CULTURE IF INDICATED CULT NOT INDICATED; GLUCOSE,URINE NEG (NEG); KETONE, URINE NEG (NEG); MUCUS URINE FEW /lpf (OCC); NITRITE,URINE NEG (NEG); PH, URINE 6.5 (5.0-8.5); SQUAMOUS EPITHELIAL CELL URINE 3 /hpf (0-5); URINE COLOR YELLOW (YELLW/STRAW)
[2017-05-22 10:17] LABS: APTT (PATIENT) 25.9 SEC (24.3-30.1); PROTHROMBIN TIME - PATIENT 10.6 SEC (9.8-11.6)
[2017-05-22 10:27] LABS: ANION GAP 7 MEQ/L (5-15); AST (GOT) 16 U/L (15-37); BICARBONATE 30.2 MEQ/L (21.0-32.0); BLOOD UREA NITROGEN 11 MG/DL (7-18); CHLORIDE 102 MEQ/L (98-107); GLOMERULAR FILTRATION RATE 99 ML/MIN (>89); GLUCOSE,FASTING 121 MG/DL (74-99); POTASSIUM 3.6 MEQ/L (3.5-5.1); SODIUM (NA) 139 MEQ/L (136-145)
[2017-05-22 10:32] LABS: ALKALINE PHOSPHATASE 70 U/L (45-117); ALT (GPT) 17 U/L (10-53); TOTAL BILIRUBIN ADULT 0.3 MG/DL (0.2-1.0)
[2017-05-22 10:39] LABS: AUTOMATED NEUTROPHIL # 3.6 TH/MM3 (1.8-7.7); BASOPHIL % 0.6 % (0.0-2.0); EOSINOPHIL # 0.3 TH/MM3 (0-0.4); EOSINOPHIL % 5.2 % (0.0-4.0); HEMATOCRIT 36.1 % (35.0-46.0); HEMO FLAGS DIFF FINAL; LYMPH % 25.7 % (9.0-44.0); LYMPHOCYTE # 1.6 TH/MM3 (1.0-4.8); MEAN CELL VOLUME 91.3 FL (80.0-100.0); MEAN CORPUSCULAR HEMOGLOBIN 30.5 PG (27.0-34.0); MEAN CORPUSCULAR HGB CONC 33.4 % (32.0-36.0); MONO % 8.6 % (0.0-8.0); NEUT % 59.9 % (16.0-70.0); PLATELET COUNT 268 TH/MM3 (150-450); RED BLOOD COUNT 3.95 MIL/MM3 (4.00-5.30); RED CELL DISTRIBUTION WIDTH 14.3 % (11.6-17.2)
[2017-05-22 10:50] LABS: WESTERGREN SEDIMENTATION RATE 18 mm/hr (0-30)
--- NOTE | 2017-05-22 13:40 | EKG ---
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
== END ==
LOC: CPRE 08:49
PROVIDERS: ATTEND Orthopaedic Surgery Sports Medicine
DX: Z01.812 Encounter for preprocedural laboratory examination (principal); Z01.810 Encounter for preprocedural cardiovascular examination; Z01.811 Encounter for preprocedural respiratory examination; M25.50 Pain in unspecified joint; M17.11 Unilateral primary osteoarthritis, right knee; Z96.60 Presence of unspecified orthopedic joint implant; Z79.01 Long term (current) use of anticoagulants
CPT/HCPCS: 36415; 71020; 80053; 81001; 85025; 85610; 85652; 85730; 93005